=== PATIENT | female | born 1950 ===

== ENCOUNTER → 2018-07-02 16:20 | Outpatient (REF) | payer OTHER, SELFPAY ==
[2018-07-02 17:40] LABS: Alanine Aminotransferase 23 IU/L (9-52); Albumin Globulin Ratio 1.4 (1.0-2.8); Alkaline Phosphatase 93 U/L (38-126); Aspartate Aminotransferase 38 IU/L (14-36); BUN Creatinine Ratio 32.9 (6-22); Bilirubin Total 0.3 mg/dL (0.2-1.3); Blood Urea Nitrogen 23 mg/dL (7-17); Calcium 9.4 mg/dL (8.4-10.2); Carbon Dioxide 31 mmol/L (22-32); Chloride 99 mmol/L (98-107); Cholesterol 145 mg/dL (140-199); Estimated Glomerular Filt Rate > 60.0 mL/min (>60); Globulin 2.9 g/dL (1.7-4.1); Glucose 101 mg/dL (80-110); HDL Cholesterol 48 mg/dL (40-60); HEMOLYSIS < 15 (0-50); LDL Cholesterol Calculated 71 mg/dL (<100); Potassium 4.6 mmol/L (3.4-5.1); Sodium 138 mmol/L (137-145); Total Protein 6.9 g/dL (6.3-8.2); Triglycerides 130 mg/dL (35-150)
[2018-07-02 18:10] LABS: Creatinine Urine Random 55.3 mg/dL
[2018-07-02 18:16] LABS: Microalbumi Creatinin Ratio Ur 10.8 ug/mg CR (<30); Microalbumin Urine Random < 0.6 mg/dL (0-1.6)
== END ==
LOC: LAB 16:20
PROVIDERS: Visit Provider Family Medicine
DX: C78.5 Secondary malignant neoplasm of large intestine and rectum (principal); E11.9 Type 2 diabetes mellitus without complications; I10 Essential (primary) hypertension; C03.9 Malignant neoplasm of gum, unspecified
CPT/HCPCS: 80053; 80061; 82043; 82570; 83036; 84443